=== PATIENT | male | born 1950 | race Caucasian/White ===

== ENCOUNTER 2020-05-17 08:05 | Emergency (ER) | payer MEDICARE ==
--- NOTE | 2020-05-17 08:42 | EDM.PDOC ---
ED HPI GENERAL MEDICAL PROBLEM - General Chief Complaint: Genitourinary Problem Time Seen by Provider: 05/17/20 08:33 Source of Information: Reports: Patient, Family, RN Notes Reviewed History Limitations: Reports: No Limitations - History of Present Illness INITIAL COMMENTS - FREE TEXT/NARRATIVE: 70-year-old gentleman presents emergency department today with complaint of difficulty with urination, states the problem developed last night has been able to have few dribbles did have some back pain with some nausea and vomiting. He does have a history of frequent urination at night sometimes 4-5 times he has not followed up with his primary care on this he has never taken any prostate medications he does not know about his prostate health - Related Data Allergies Allergy/AdvReac Type Severity Reaction Status Date / Time Penicillins Allergy Hives Verified 05/17/20 08:47 Home Meds: Home Meds amLODIPine/atorvaSTATin [Amlodipine-Atorvast 10-20 mg] 1 tab PO DAILY 05/17/20 [History] Social & Family History - Tobacco Use Smoking Status *Q: Never Smoker ED ROS GENERAL - Review of Systems Review Of Systems: See Below Constitutional: Reports: No Symptoms Respiratory: Reports: No Symptoms Cardiovascular: Reports: No Symptoms GI/Abdominal: Reports: Nausea, Vomiting : Reports: Urinary Retention Musculoskeletal: Reports: Back Pain ED EXAM, RENAL/ - Physical Exam Exam: See Below Text/Narrative:: Examination is done after catheter placement bladder scan revealed 999 cc Exam Limited By: No Limitations General Appearance: Alert, WD/WN, No Apparent Distress Respiratory/Chest: No Respiratory Distress GI/Abdominal: Soft, Non-Tender Course - Vital Signs Last Recorded V/S: Last Vital Signs Temp 97.8 F 05/17/20 08:39 Pulse 82 05/17/20 08:39 Resp 16 05/17/20 08:39 BP 159/85 H 05/17/20 08:39 Pulse Ox 98 05/17/20 08:39 - Orders/Labs/Meds Orders: Active Orders 24 hr Category Date Time Status Bladder Scan [RC] ASDIRECTED Care 05/17/20 08:43 Active Gil Catheter Insertion [Insert Urinary Catheter] [OM. Care 05/17/20 08:45 Ordered PC] Q24H Urinary Catheter Assessment [RC] ASDIRECTED Care 05/17/20 08:44 Active Labs: Laboratory Tests 05/17/20 Range/Units 08:50 Urine Color Yellow (YELLOW) Urine Appearance Cloudy A (CLEAR) Urine pH 7.0 (5.0-8.0) Ur Specific [place] 1.020 (1.008-1.030) Urine Protein Negative (NEGATIVE) mg/dL Urine Glucose (UA) Negative (NEGATIVE) mg/dL Urine Ketones Negative (NEGATIVE) mg/dL Urine Occult Blood Moderate H (NEGATIVE) Urine Nitrite Negative (NEGATIVE) Urine Bilirubin Negative (NEGATIVE) Urine Urobilinogen 0.2 (0.2-1.0) EU/dL Ur Leukocyte Esterase Negative (NEGATIVE) Urine RBC 40-50 H (0-5) Urine WBC 0-5 (0-5) Ur Epithelial Cells Not seen Amorphous Sediment Not seen Urine Bacteria Not seen Urine Mucus Few Departure - Departure Time of Disposition: 08:54 Disposition: Home, Self-Care 01 Condition: Fair Clinical Impression: Urinary retention - Discharge Information Instructions: Indwelling Urinary Catheter Care, Adult, Acute Urinary Retention, Male Referrals: PCP,None [Primary Care Provider] - Forms: ED Department Discharge Additional Instructions: Continue to use the leg bag until reevaluated by your primary care provider, please followup with your primary care provider in upon return home, please call return to the emergency department with worsening of symptoms. Sepsis Event Note (ED) - Evaluation Sepsis Screening Result: No Definite Risk - Focused Exam Vital Signs: Vital Signs Temp Pulse Resp BP Pulse Ox 05/17/20 08:39 97.8 F 82 16 159/85 H 98 05/17/20 08:31 97.8 F 82 16 159/85 H 98 - My Orders Last 24 Hours: My Active Orders 05/17/20 08:43 Bladder Scan [RC] ASDIRECTED 05/17/20 08:44 Urinary Catheter Assessment [RC] ASDIRECTED 05/17/20 08:45 Gil Catheter Insertion [Insert Urinary Catheter] [OM.PC] Q24H - Assessment/Plan Last 24 Hours: My Active Orders 05/17/20 08:43 Bladder Scan [RC] ASDIRECTED 05/17/20 08:44 Urinary Catheter Assessment [RC] ASDIRECTED 05/17/20 08:45 Gil Catheter Insertion [Insert Urinary Catheter] [OM.PC] Q24H Plan: Assessment Acuity = acute Site and laterality = urinary retention Etiology = probably related to prostate pathology Manifestations = none Location of injury = Home Lab values = urinalysis 40-50 RBCs consistent with a hematuria probably related to catheterization Plan Leg bag is placed he will follow-up with his primary care upon return home for further evaluation This note was dictated using [employer] voice recognition software please call with any questions on syntax or grammar.
== END 2020-05-17 09:20 | disposition home or self-care (01) ==
LOC: JP.ED 08:05
DX: R33.9 Retention of urine, unspecified (principal); Z88.0 Allergy status to penicillin
CPT/HCPCS: 51702; 51798; 81001; 99282; 99283-25